=== PATIENT | female | born 2000 | race Two or more races ===

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

== ENCOUNTER 2022-11-13 16:55 | Emergency (ER) | payer MEDICAID ==
[~2022-11-13] VITALS: Ht 165.1 cm; Wt 59.0 kg
[2022-11-13 18:25] VITALS: BP 127/67
== END 2022-11-13 19:16 | disposition home or self-care (01) ==
LOC: EDUNIT# 16:55 → EDBD 16:55 → ER 16:55
DX: S61.431A Puncture wound without foreign body of right hand, initial encounter (principal); W46.0XXA Contact with hypodermic needle, initial encounter; Y93.89 Activity, other specified; Y92.89 Other specified places as the place of occurrence of the external cause; Y99.8 Other external cause status